=== PATIENT | female | born 1955 | race Caucasian/White ===

== ENCOUNTER 2017-02-07 17:24 | Emergency (ER) | payer BC ==
[~2017-02-07] VITALS: Ht 167.6 cm; Wt 101.2 kg
[~2017-02-07 17:24] MED LIST changes: -IOHEXOL 240 MG/ML 50ML VIAL. ONE; -IOHEXOL 300 MG/ML 75 ML VIAL. IV ONE; -TAMS0.4C97 PO
[2017-02-07 18:38] LABS: BILIRUBIN,URINE NEG (NEG); CLARITY,URINE CLEAR; COLOR,URINE STRAW; GLUCOSE,URINE NEG (NEG)
[2017-02-07 18:39] LABS: AMORPHOUS SEDIMENT,UR PRESENT /HPF; BACTERIA,URINE 0 /HPF (0-FEW); NITRITE,URINE NEG (NEG); RBC,URINE 0 /HPF (0-2); SQUAMOUS EPITHELIAL CELL,UR OCC /LPF; UROBILINOGEN,URINE 0.2 mg/dL (0.2 mg/dL); WBC,URINE OCC /HPF (0-4)
[2017-02-07] MEDS ORDERED: TAMS0.4C97 PO (18:43)
--- NOTE | 2017-02-07 18:44 | PHYS DOC ---
Past History Past Medical History: Diabetes, Hypertension Past Surgical History: Hysterectomy, Tubal ligation, Other Alcohol Use: None Drug Use: None Adult General Chief Complaint Chief Complaint: FLANK PAIN [facility] HPI Patient is a 61 year old F who presents with intermittent sharp left flank pain over the past 3 days. This pain is associated with blood in the urine but no other urinary tract infection signs or symptoms. Her pain is 3 out of 10 currently. She was seen in the clinic and found to have a 5 mm left proximal ureteral stone. She has a history of a previous kidney stone on the right approximately 40 years ago. She has no other exacerbating or alleviating factors. She has no other associated signs or symptoms Review of Systems Review of Systems Constitutional: Denies fever or chills [] Eyes: Denies change in visual acuity, redness, or eye pain [] HENT: Denies nasal congestion or sore throat [] Respiratory: Denies cough or shortness of breath [] Cardiovascular: No additional information not addressed in HPI [] GI: Negative except history of present illness : Denies dysuria or hematuria [] Musculoskeletal: Denies back pain or joint pain [] Integument: Denies rash or skin lesions [] Neurologic: Denies headache, focal weakness or sensory changes [] Endocrine: Denies polyuria or polydipsia [] Family History Family History Noncontributory Current Medications Current Medications Medications reviewed Allergies Allergies Allergies Coded Allergies Type Severity Reaction Last Updated Verified No Known Drug Allergies 05/20/16 No Physical Exam Physical Exam Constitutional: Well developed, well nourished, no acute distress, non-toxic appearance. [] HENT: Normocephalic, atraumatic Eyes: EOMI, conjunctiva normal, no discharge. [] Neck: Normal range of motion, no tenderness, supple, no stridor. [] Cardiovascular:Heart rate regular rhythm, Lungs & Thorax: Bilateral breath sounds clear to auscultation [] Abdomen: Bowel sounds normal, soft, no tenderness, no masses, no pulsatile masses. [] Skin: Warm, dry, no erythema, no rash. [] Back: No tenderness, no CVA tenderness. [] Extremities: No tenderness, no cyanosis, no clubbing, ROM intact, no edema. [] Neurologic: Alert and oriented X 3, normal motor function, normal sensory function, no focal deficits noted. [] Psychologic: Affect normal, judgement normal, mood normal. [] Current Patient Data Vital Signs Vital Signs Date Time Temp Pulse Resp B/P (MAP) Pulse Ox O2 Delivery O2 Flow Rate FiO2 02/07/17 17:25 98.4 89 20 99 Room Air Lab Results Laboratory Tests Test 02/07/17 17:55 Urine Collection Type Unknown Urine Color Straw Urine Clarity Clear Urine pH 5.0 Urine Specific [place] 1.010 Urine Protein Neg (NEG-TRACE) Urine Glucose (UA) Neg mg/dL (NEG) Urine Ketones (Stick) Neg mg/dL (NEG) Urine Blood Trace (NEG) Urine Nitrite Neg (NEG) Urine Bilirubin Neg (NEG) Urine Urobilinogen Dipstick 0.2 mg/dL (0.2 mg/dL) Urine Leukocyte Esterase Neg (NEG) Urine RBC 0 /HPF (0-2) Urine WBC Occ /HPF (0-4) Urine Squamous Epithelial Cells Occ /LPF Urine Amorphous Sediment Present /HPF Urine Bacteria 0 /HPF (0-FEW) Course & Med Decision Making Course & Med Decision Making Pertinent Labs and Imaging studies reviewed. (See chart for details) [facility] urology was contacted by phone for consultation. Outside labs and imaging were reviewed. Her case was reviewed with urology including the finding of a 5 mm proximal left ureteral stone which was described as obstructing and the radiologist's report. Urology's recommendation was to start Flomax and consider follow-up in the next 1-2 weeks. Dragon Disclaimer Dragon Disclaimer This chart was dictated in whole or in part using Voice Recognition software in a busy, high-work load, and often noisy Emergency Department environment. It may contain unintended and wholly unrecognized errors or omissions. Departure Departure: Impression: Primary Impression: Kidney stone Disposition: 01 HOME, SELF-CARE Condition: STABLE Referrals: OPAL SLOAN MD (PCP) Patient Instructions: Kidney Stones Additional Instructions: Debbie was seen in the emergency department for a kidney stone. No emergency medical condition was found on history or physical exam. She had normal urinary analysis. Urology at was contacted by phone for consultation. She was started on Flomax to be taken daily until she passes her kidney stone. She was advised to follow-up with urology in the next 1-2 weeks for further management and/or to return to the emergency room as soon as possible if she develops new or worsening symptoms. Scripts Tamsulosin Hcl (FLOMAX) 0.4 Mg Cap.er.24h 1 CAP PO DAILY for 14 Days, #14 CAP 0 Refills Prov: OPAL RODRÍGUEZ MD 02/07/17 OPAL RODRÍGUEZ MD Feb 07, 2017 18:44
[2017-02-07] MEDS ORDERED: TAMSULOSIN 0.4 MG CAP.ER.24H. PO ONE ×2 (18:47→19:00)
[2017-02-07 19:00] VITALS: BP 195/90
== END 2017-02-07 19:00 | disposition home or self-care (01) ==
LOC: ER 17:24
DX: N20.0 Calculus of kidney (principal); E11.9 Type 2 diabetes mellitus without complications; I10 Essential (primary) hypertension; Z90.710 Acquired absence of both cervix and uterus; Z98.51 Tubal ligation status
CPT/HCPCS: 81001; 99283

== ENCOUNTER → 2017-02-07 | Outpatient (CLI) | payer BC ==
[2016-05-20 10:58] VITALS: BP 219/97
[~2017-02-07] MED LIST: CYCL-331 PO; HYDR-971 PO; IOHEXOL 240 MG/ML 50ML VIAL. ONE; IOHEXOL 300 MG/ML 75 ML VIAL. IV ONE; TAMS0.4C97 PO
--- NOTE | 2017-02-07 13:55 | RAD ---
CT of the abdomen and pelvis with contrast, 02/07/2017: History: Left lower quadrant pain Multidetector CT imaging was performed following oral and IV administration of contrast. The liver is of lower than normal density suggesting fatty change. A 1 cm low-density lesion in the left lobe probably represents a cyst. The gallbladder is unremarkable. There is mild adjacent focal fatty sparing in the liver. No pancreatic abnormality is seen. The spleen is of normal size. Several small intrarenal calculi are present on the left. There is a 5 mm obstructing calculus in the proximal left ureter located just distal to the ureteropelvic junction. There is mild associated dilatation of the left renal collecting system. The distal left ureter is unremarkable. The urinary bladder is poorly distended. The right kidney is mildly atrophic with moderate cortical scarring. No right renal calculi are seen. The right renal collecting system and right ureter are not dilated. The abdominal aorta is unremarkable. No abdominal or pelvic adenopathy is seen. The uterus is surgically absent. The bowel loops are not dilated. The appendix is visualized and shows no abnormality. No free fluid or free air is evident in the abdomen or pelvis. Moderate multilevel hypertrophic degenerative change is present in the spine. IMPRESSION: 1. 5 mm obstructing calculus in the proximal left ureter. 2. Several additional small nonobstructing left intrarenal calculi. 3. Moderate right renal scarring. 4. Hepatic steatosis. 5. Probable small hepatic cyst. PQRS Compliance Statement: One or more of the following individualized dose reduction techniques were utilized for this examination: 1. Automated exposure control 2. Adjustment of the mA and/or kV according to patient size 3. Use of iterative reconstruction technique
== END | disposition home or self-care (01) ==
LOC: CT 11:36
PROVIDERS: ATTEND Physician Assistant
DX: N20.0 Calculus of kidney (principal); K76.0 Fatty (change of) liver, not elsewhere classified; N26.1 Atrophy of kidney (terminal); N32.89 Other specified disorders of bladder; N28.89 Other specified disorders of kidney and ureter; I10 Essential (primary) hypertension; Z90.710 Acquired absence of both cervix and uterus
CPT/HCPCS: 74177; Q9966; Q9967

== ENCOUNTER 2017-02-17 15:26 | Emergency (ER) | payer BC ==
[~2017-02-17] VITALS: Ht 167.6 cm; Wt 101.2 kg
[~2017-02-17 15:26] MED LIST changes: +TAMS0.4C97 PO
[2017-02-17] MEDS ORDERED: IV NORMAL SALINE 1,000ML 1,000 ML IV SCH (16:04)
[2017-02-17 16:24] LABS: BASO # 0.1 x10^3/uL (0.0-0.2); BASO % 1 % (0-3); EOS # 0.1 x10^3/uL (0.0-0.7); EOS % 1 % (0-3); HEMATOCRIT 37.5 % (36.0-47.0); HEMOGLOBIN 12.8 g/dL (12.0-15.5); LYMPH # 1.3 x10^3/uL (1.0-4.8); LYMPH % 11 % (24-48); MEAN CORPUSCULAR HEMOGLOBIN 29 pg (25-35); MEAN CORPUSCULAR HGB CONC 34 g/dL (31-37); MEAN CORPUSCULAR VOLUME 85 fL (79-100); MONO # 0.9 x10^3/uL (0.0-1.1); MONO % 7 % (0-9); NEUT % 81 % (31-73); PLATELET COUNT 173 x10^3/uL (140-400); RED BLOOD COUNT 4.43 x10^6/uL (3.50-5.40); RED CELL DISTRIBUTION WIDTH 12.9 % (11.5-14.5); WHITE BLOOD COUNT 12.4 x10^3/uL (4.0-11.0)
--- NOTE | 2017-02-17 16:24 | PHYS DOC ---
General Chief Complaint: ALTERED MENTAL STATUS Stated Complaint: CONFUSED POSSIBLE MED PROBLEM Time Seen by MD: 15:36 Source: patient, family Exam Limitations: clinical condition Problems: (JAKOB MALDONADO DO) Time Seen by MD: 18:30 Problems: (TANIA MAYNARD MD) History of Present Illness Initial Comments Pt is 61/F to ED brought by daughter for AMS. Daughter states pt was discharged home from last Friday after ureteral stent tx for kidney stone. Left ureteral stent scheduled to be removed this Friday at . She was discharged home with tramadol, norco, and cipro for UTI. Since discharge daughter states all pt has done is lay in bed and take pain meds. She says pt has been acting strangely all week, began hallucinating Friday. Daughter took pain meds away from pt yesterday 1230 pm and since then pt has been more awake and hallucinations more severe (auditory and visual). Pt talking to herself here in the ED on arrival, she cannot answer any questions. Do you have any pain gets responses such as "I don't know what's real, you'll have to ask the other me." Pt VS on arrival 99, 122, 18, 152/63, 95% RA. Daughter states pt has not complained of headache, chest pain, or SOB and no fever/diaphoresis/temperature intolerance has been noted. No cough or obvious lateralizing neurodeficit has been noted. Pt diagnosed DM past August, follows with Dr Sloan, has distant history of breast cancer takes meds for HTN. Timing/Duration: unsure (at least since Friday) Severity: severe Modifying Factors: worse with medication Associated Symptoms: other (JAKOB MALDONADO DO) Allergies: Coded Allergies: No Known Drug Allergies (Unverified , 05/20/16) Past Medical History Medical History: other (HTN, DM, breast cancer, kidney stones, UTI) Surgical History: other (TL, hysterectomy, ureteral stent) (JAKOB MALDONADO DO) Social History Smoker: non-smoker Alcohol: none Drugs: none (JAKOB MALDONADO DO) Review of Systems All Other Systems: Reviewed and Negative (pt unable or refuses to respond, see HPI as accurate ROS unobtainable) (JAKOB MALDONADO DO) Physical Exam General Appearance: mild distress, obese Eyes: bilateral eye normal inspection, bilateral eye PERRL, bilateral eye EOMI Ear, Nose, Throat: hearing grossly normal, normal ENT inspection (dry membranes ), normal pharynx Neck: non-tender, full range of motion, supple Respiratory: normal breath sounds, no respiratory distress Cardiovascular: normal peripheral pulses, tachycardia Gastrointestinal: soft (mildly distended, BS normal, no focal TTP pt daughter states "it's not any bigger than it always is"), no pulsatile mass Back: no CVA tenderness, no vertebral tenderness Extremities: normal range of motion, pelvis stable, other (tenderness distally right calf no obvious swelling or palpable mass) Neurologic/Psychiatric: [employer] II-XII nml as tested, no motor/sensory deficits, alert, other (oriented to self knows she's in hospital, +auditory/visual hallucinations) Skin: warm/dry (poor turgor) (JAKOB MALDONADO DO) Orders, Labs, Meds EKG: sinus tachycardia 122 bpm, baseline wander artifact no STEMI. Interpreted by me. PCXR: no acute cardiopulmonary process, interpreted by me. PATIENT: PRO ALVAREZ ACCOUNT: [id number] : 1955 LOCATION: ER AGE: 61 SEX: F EXAM STATUS: REG ER ORD. PHYSICIAN: JAKOB MALDONADO DO REASON: AMS PROCEDURE: CT HEAD WO CONTRAST CT head Indication: Mental status changes Technique: CT head without IV contrast Comparison: None Findings: No pathologic extra-axial or intra-axial fluid collection. The ventricles and basilar cisterns are within normal limits. No acute intracranial bleed. No midline shift. No focal loss of mayfield-white difference in aeration. Orbits within normal limits. The paranasal sinuses and mastoid air cells are clear. No calvarial lesions. Subcentimeter low-attenuation focus within the right thalamus likely lacunar infarct, age indeterminate. Impression: 1. No acute intracranial bleed. 2. Small focus of low-attenuation within right thalamus likely lacunar infarct, age indeterminate. If concern for acute ischemic stroke is high, please consider MRI. PQRS Compliance Statement: One or more of the following individualized dose reduction techniques were utilized for this examination: 1. Automated exposure control 2. Adjustment of the mA and/or kV according to patient size 3. Use of iterative reconstruction technique DICTATED AND SIGNED BY: SOL WETZEL DATE: 02/17/17 1645 CC: OPAL SLOAN MD; JAKOB MALDONADO DO ~ 1740: Pt rechecked, she can now answer questions and to me hallucinations appear decreased. Pt daughter states she has seen no improvement, pt "I don't know, I can't answer that." Pertinent labs: WBC 12.4, d-dimer >19, BUN 26, Cr 2.2, glucose 2 1825: I discussed pt with Dr Silva at [facility], she declined pt due to indwelling left ureteral stent and lack of urology coverage. Pt signed out to Dr Maynard at 1800 shift change. See his documentation for results/disposition. (JAKOB MALDONADO DO) Orders, Labs, Meds Patient was checked out to me. She has an elevated d-dimer. Have added on alcohol, aspirin, Tylenol levels which are normal. I did also ask ultrasounds of bilateral lower extremities she does have some pain in her right calf and this is positive for DVT. Heparin has been started. I did start the patient on normal saline 120 an hour in addition to 1 g of Rocephin. Spoke with transfer team who accepts the patient. She is in stable condition this time being transferred to underneath . Diagnoses: 1 altered mental status #2 tachycardia #3 elevated d-dimer #4 DVT in the right lower extremity #5 Dm #6 history of kidney stone with a recent ureteral stent #7HTN (TANIA MAYNARD MD) JAKOB MALDONADO DO Feb 17, 2017 16:24 TANIA MAYNARD MD Feb 17, 2017 20:58
--- NOTE | 2017-02-17 16:43 | RAD ---
Portable chest, 02/17/2017: History: Tachycardia The heart size and pulmonary vascularity are normal. No pulmonary infiltrates are seen. There is no evidence of pleural fluid. Moderate spurring is present in the spine. IMPRESSION: No acute cardiopulmonary abnormality is detected.
[2017-02-17 16:44] LABS: ALBUMIN/GLOBULIN RATIO 0.6 (1.0-1.7); CALCIUM 9.1 mg/dL (8.5-10.1); CREATININE 2.2 mg/dL (0.6-1.0); GFR 22.5; MAGNESIUM 1.9 mg/dL (1.8-2.4); POTASSIUM 3.6 mmol/L (3.5-5.1); TOTAL BILIRUBIN 0.6 mg/dL (0.2-1.0); TOTAL PROTEIN 8.2 g/dL (6.4-8.2)
--- NOTE | 2017-02-17 16:51 | RAD ---
CT head Indication: Mental status changes Technique: CT head without IV contrast Comparison: None Findings: No pathologic extra-axial or intra-axial fluid collection. The ventricles and basilar cisterns are within normal limits. No acute intracranial bleed. No midline shift. No focal loss of mayfield-white difference in aeration. Orbits within normal limits. The paranasal sinuses and mastoid air cells are clear. No calvarial lesions. Subcentimeter low-attenuation focus within the right thalamus likely lacunar infarct, age indeterminate. Impression: 1. No acute intracranial bleed. 2. Small focus of low-attenuation within right thalamus likely lacunar infarct, age indeterminate. If concern for acute ischemic stroke is high, please consider MRI. PQRS Compliance Statement: One or more of the following individualized dose reduction techniques were utilized for this examination: 1. Automated exposure control 2. Adjustment of the mA and/or kV according to patient size 3. Use of iterative reconstruction technique
[2017-02-17 16:55] LABS: BARBITURATES NEG (NEG); BENZODIAZEPINES NEG (NEG); CANNABINOIDS NEG (NEG); COCAINE NEG (NEG); METHADONE NEG (NEG); OPIATES POS (NEG); PHENCYCLIDINE NEG (NEG)
[2017-02-17 16:56] LABS: AMPHETAMINE/METHAMPHETAMINE NEG (NEG)
[2017-02-17 17:03] LABS: CLARITY,URINE CLOUDY; COLOR,URINE RED
[2017-02-17 17:05] LABS: BILIRUBIN,URINE NEG (NEG); GLUCOSE,URINE NEG (NEG); NITRITE,URINE NEG (NEG); UROBILINOGEN,URINE 0.2 mg/dL (0.2 mg/dL)
[2017-02-17 17:06] LABS: RBC,URINE TNTC /HPF (0-2)
[2017-02-17 17:07] LABS: BACTERIA,URINE 0 /HPF (0-FEW)
--- NOTE | 2017-02-17 17:51 | EKG ---
[address] [address] Test Date: 2017-02-17 Test Time: 15:48:06 Pat Name: PRO ALVAREZ Department: Room: Gender: F Pot Filler: : 1955 Requested By: JAKOB MALDONADO Order Number: [id number] Reading MD: Measurements Intervals [place] Rate: 120 P: 5 VA: 166 QRS: 3 QRSD: 88 T: 6 QT: 300 QTc: 429 Interpretive Statements SINUS TACHYCARDIA QRS(T) CONTOUR ABNORMALITY CONSISTENT WITH INFERIOR INFARCT PROBABLY OLD ABNORMAL ECG RI6.01 No previous ECG available for comparison
[2017-02-17] MEDS ORDERED: HYOS0.1264 PO (18:00)
[2017-02-17] MEDS ORDERED: TRAM50TA PO (18:01)
[2017-02-17] MEDS ORDERED: METO50TA2 PO (18:01)
[2017-02-17] MEDS ORDERED: CIPR500T PO (18:01)
[2017-02-17 19:15] LABS: ACETAMIN < 2.0 mcg/mL (10-30); ETHANOL < 10 mg/dL (0-10); SALIC 1.1 mg/dL (2.8-20.0)
[2017-02-17] MEDS ORDERED: IV NORMAL SALINE 50ML 50 ML ONE (19:38)
[2017-02-17] MEDS ORDERED: cefTRIAXone SODIUM 1 GM VIAL IV ONE (19:38)
[2017-02-17] MEDS ORDERED: HEPARIN 25,000UTS/500ML PREMIX 500 ML IV PRN (21:00)
[2017-02-17] MEDS ORDERED: HEPARIN for IV BOLUS 10,000 UNIT/10 ML VIAL. IV PRN ×2 (21:00)
--- NOTE | 2017-02-17 21:03 | RAD ---
Exam performed: Bilateral lower extremity venous Doppler. Clinical Indication: Bilateral leg pain Date of Service: 02/17/2017 Comparison : None available Discussion: Multiple longitudinal and transverse high resolution real-time images of the venous system of bilateral lower extremity were obtained with color and Doppler sampling and spectral analysis. There is a nonocclusive clot in the left common, superficial, popliteal, posterior tibial and peroneal vein. The right common femoral, superficial femoral, popliteal and proximal calf veins are all patent and demonstrate normal flow and compressibility. Normal respiratory phasicity and augmentation is present. Impression: Extensive DVT left lower extremity. No evidence of DVT seen in the right lower extremity. Electronically signed by: Xiomara Loaiza MD (02/17/2017 9:00 PM) [facility]
[2017-02-17 21:30] VITALS: BP 150/84
== END 2017-02-17 23:05 | disposition short-term general hospital (02) ==
LOC: ER 15:26
DX: R41.82 Altered mental status, unspecified (principal); R00.0 Tachycardia, unspecified; I82.4Z1 Acute embolism and thrombosis of unspecified deep veins of right distal lower extremity; E11.9 Type 2 diabetes mellitus without complications; I10 Essential (primary) hypertension; Z87.442 Personal history of urinary calculi; Z87.440 Personal history of urinary (tract) infections
CPT/HCPCS: 36415; 70450; 71010; 80053; 80307; 81001; 82140; 82550; 83605; 83690; 83735; 83880; 84484; 85025; 85379; 87040; 87086; 93005; 93970; 96361; 96365; 96366; 96367; 96376; 99285; G0480; J0696; J1644; G0479; J7030

== ENCOUNTER 2017-11-21 01:12 | Emergency (ER) | payer BC ==
[~2017-11-21] VITALS: Ht 167.6 cm; Wt 98.0 kg
[~2017-11-21 01:12] MED LIST changes: +CIPR500T PO; +HYOS0.1264 PO; +METO50TA6 PO; +TRAM50TA PO
--- NOTE | 2017-11-21 01:36 | ED.ADGEN ---
Past History Past Medical History: CAD, Cancer, Diabetes, Hypertension, Kidney Stones Past Surgical History: Cancer Surgery, Hysterectomy, Tubal ligation, Other Alcohol Use: None Drug Use: None Adult General Chief Complaint Chief Complaint ".. I think I am getting another kidney stone...".." It woke me up... I know it what it is.. It is on the Rt.....it was in the past on the ... Lt. I usually go to for urology... and all my care..but I was hurting so .. I stopped here..." HPI HPI Patient is a 62 year old female who presents with acute onset Rt. flank pain that radiate to Rt. groin. Pt. has had a history of multiple kidney stones some requiring stents and retrieval at urology. Patient also under the care of for her breast cancer and is receiving radiation. Patient's primary is also located at . Patient rates her pain 10 out of 10. Patient has associated nausea and vomiting with painful episodes. Patient denies any history of trauma. Patient denies any history of specific ill contacts. Patient denies any recent travel. Review of Systems Review of Systems Constitutional: Denies fever or chills [] Eyes: Denies change in visual acuity, redness, or eye pain [] HENT: Denies nasal congestion or sore throat [] Respiratory: Denies cough or shortness of breath [] Cardiovascular: No additional information not addressed in HPI [] GI: Complaints of right flank abdominal pain, nausea, vomiting. Denies bloody stools or diarrhea [] : Complains of hematuria [] Musculoskeletal: Complaints of severe Rt. flank back pain . Denies joint pain [ ] Integument: Denies rash or skin lesions [] Neurologic: Denies headache, focal weakness or sensory changes [] Endocrine: Denies polyuria or polydipsia [] All other systems were reviewed and found to be within normal limits, except as documented in this note. Family History Family History Non-contributory Current Medications Current Medications Current Medications Medications (Trade) Dose Ordered Sig/Curtis Start Time Stop Time Status Last Admin Dose Admin Famotidine (Pepcid Vial) 20 mg 1X ONCE 11/21/17 02:00 11/21/17 02:01 DC 11/21/17 03:17 20 MG Ketorolac Tromethamine (Toradol) 30 mg 1X ONCE 11/21/17 03:00 11/21/17 03:01 DC 11/21/17 03:16 30 MG Lactated Ringer's 1,000 ml @ 1,000 mls/hr Q1H 11/21/17 02:00 11/21/17 02:59 DC 11/21/17 03:16 1,000 MLS/HR Levofloxacin/ Dextrose 100 ml @ 100 mls/hr 1X ONCE 11/21/17 04:00 11/21/17 04:59 DC 11/21/17 04:23 100 MLS/HR Morphine Sulfate (Morphine 10mg Syringe) 10 mg 1X ONCE 11/21/17 03:00 11/21/17 03:01 DC 11/21/17 03:17 10 MG Ondansetron HCl (Zofran Odt) 8 mg 1X ONCE 11/21/17 03:00 11/21/17 03:01 DC Ondansetron HCl (Zofran) 8 mg 1X ONCE 11/21/17 02:00 11/21/17 02:01 DC 11/21/17 03:16 8 MG Tamsulosin HCl (Flomax) 0.4 mg 1X ONCE 11/21/17 04:30 11/21/17 04:31 DC 11/21/17 04:23 0.4 MG See Nursing for home meds. Allergies Allergies Allergies Coded Allergies Type Severity Reaction Last Updated Verified phenazopyridine Allergy Severe 11/21/17 Yes Physical Exam Physical Exam Constitutional: in acute distress, non-toxic appearance. [] HENT: Normocephalic, atraumatic, bilateral external ears normal, oropharynx moist, no oral exudates, nose normal. [] Eyes: PERRLA, EOMI, conjunctiva normal, no discharge. Glasses. Neck: Normal range of motion, no tenderness, supple, no stridor. [] Cardiovascular: Tachycardia Heart rate regular rhythm, no murmur []PMI to Lt. Lungs & Thorax: Bilateral breath sounds equal at apex on auscultation [] Basilar crackles. Old surgery scar breast rt. Abdomen: Bowel sounds decreased, soft, no tenderness, no masses, no pulsatile masses. Obese. Old surgery scar . Rt. flank pain. Skin: Warm,diaphoretic, no erythema, no rash. [] Back: No mid-line tenderness, Rt. flank CVA tenderness. [] Extremities: No tenderness, no cyanosis, no clubbing, ROM intact, trace edema. [ ] Neurologic: Alert and oriented X 3, normal motor function, normal sensory function, no focal deficits noted. [] Psychologic: Affect anxious, judgement normal, mood depressed. Current Patient Data Vital Signs Vital Signs Date Time Temp Pulse Resp B/P (MAP) Pulse Ox O2 Delivery O2 Flow Rate FiO2 11/21/17 04:27 81 16 122/63 (82) 93 Room Air 11/21/17 01:12 97.7 Lab Results Laboratory Tests Test 11/21/17 03:50 White Blood Count 9.7 x10^3/uL (4.0-11.0) Red Blood Count 4.69 x10^6/uL (3.50-5.40) Hemoglobin 13.4 g/dL (12.0-15.5) Hematocrit 39.5 % (36.0-47.0) Mean Corpuscular Volume 84 fL (79-100) Mean Corpuscular Hemoglobin 29 pg (25-35) Mean Corpuscular Hemoglobin Concent 34 g/dL (31-37) Red Cell Distribution Width 14.3 % (11.5-14.5) Platelet Count 143 x10^3/uL (140-400) Neutrophils (%) (Auto) 85 % (31-73) H Lymphocytes (%) (Auto) 10 % (24-48) L Monocytes (%) (Auto) 5 % (0-9) Eosinophils (%) (Auto) 0 % (0-3) Basophils (%) (Auto) 0 % (0-3) Neutrophils # (Auto) 8.2 x10^3uL (1.8-7.7) H Lymphocytes # (Auto) 1.0 x10^3/uL (1.0-4.8) Monocytes # (Auto) 0.4 x10^3/uL (0.0-1.1) Eosinophils # (Auto) 0.0 x10^3/uL (0.0-0.7) Basophils # (Auto) 0.0 x10^3/uL (0.0-0.2) Prothrombin Time 9.7 SEC (9.4-11.4) Prothrombin Time INR 0.9 (0.9-1.1) PTT 22 SEC (23-33) L Sodium Level 135 mmol/L (136-145) L Potassium Level 4.1 mmol/L (3.5-5.1) Chloride Level 100 mmol/L (98-107) Carbon Dioxide Level 23 mmol/L (21-32) Anion Gap 12 (6-14) Blood Urea Nitrogen 27 mg/dL (7-20) H Creatinine 1.8 mg/dL (0.6-1.0) H Estimated GFR (Cockcroft-Gault) 28.3 Glucose Level 289 mg/dL (70-99) H Calcium Level 9.5 mg/dL (8.5-10.1) Total Bilirubin 0.7 mg/dL (0.2-1.0) Direct Bilirubin 0.2 mg/dL (0.0-0.2) Aspartate Amino Transferase (AST) 23 U/L (15-37) Alanine Aminotransferase (ALT) 28 U/L (14-59) Alkaline Phosphatase 93 U/L (46-116) Total Protein 7.6 g/dL (6.4-8.2) Albumin 3.5 g/dL (3.4-5.0) Lipase 139 U/L (73-393) EKG EKG My interpretation of EKG shows as sinus rate of 88, Lt. axis. No findings of acute STEMI with contra lateral change.s Radiology/Procedures Radiology/Procedures My interpretation of acute abdomen film[] shows prior right chest wall surgical clips. A left mediastinal node. Cardiomegaly. No free air in the diaphragm. Increased stool in colon. What appears to be a right sided kidney stone. Degenerative joint changes. The CT of abdomen shows right-sided hydronephrosis and perinephric edema. With a right proximal ureter stone. Has stones also in the left but they appear to be intrarenal. Also found to have a lesion on the left lobe of liver. A cystic lesion and right kidney. Some nonspecific adenopathy of abdomen. See formal report when available for details. Course & Med Decision Making Course & Med Decision Making Pertinent Labs and Imaging studies reviewed. (See chart for details). Pt. has request transfer to - Still awaiting call back Transfer Center - [phone]- Pt. accepted at [place] [id number], [address] Elise Accepting [] Final Impression Final Impression 1. Right Proximal UVJ renal stone with hydronephrosis and perinephric edema 2. Hx. of Breast Cancer- Rt.- Surgery and Radiation tx. 3. Elevated BU and and creatinine 14/06.8 4. DM- 289 Dragon Disclaimer Dragon Disclaimer This electronic medical record was generated, in whole or in part, using a voice recognition dictation system. RAAD HERNANDEZ MD Nov 21, 2017 01:36
[2017-11-21] MEDS ORDERED: IV RINGERS SOLUTION,LACTATED 1,000 ML IV SCH (02:00)
[2017-11-21] MEDS ORDERED: FAMOTIDINE 20 MG/2 ML VIAL IVP ONE (02:00)
[2017-11-21] MEDS ORDERED: ONDANSETRON PF 4 MG/2 ML VIAL. IV ONE (02:00)
--- NOTE | 2017-11-21 02:09 | EKG ---
[address] [address] Test Date: 2017-11-21 Test Time: 02:03:39 Pat Name: PRO ALVAREZ Department: Room: Gender: F Perinatal Nurse: PEDRO : 1955 Requested By: RAAD HERNANDEZ Order Number: [id number] Reading MD: Mingo Bah MD Measurements Intervals [place] Rate: 88 P: -10 GA: 176 QRS: -4 QRSD: 96 T: 0 QT: 376 QTc: 459 Interpretive Statements SINUS RHYTHM NON-SPECIFIC ST/T CHANGES Electronically Signed On 11-22-2017 9:13:21 CDT by Mingo Bah MD
--- NOTE | 2017-11-21 02:40 | RAD ---
INDICATION: Right flank and right lower quadrant abdominal pain, N/V
Hx Kidney stones in the past with lithotripsy and ureteral stent placement, currently has Breast Cancer and has radiation treatments COMPARISON: February 07, 2017 TECHNIQUE: Axial CT images obtained through the abdomen and pelvis without contrast. Limited assessment of solid organ structures and vasculature secondary to lack of intravenous contrast.. One or more of the following individualized dose reduction techniques were utilized for this examination: 1. Automated exposure control; 2. Adjustment of the mA and/or kV according to patient size; 3. Use of iterative reconstruction technique. FINDINGS: Calcific atherosclerosis without abdominal aortic aneurysm. There are some prominent lymph nodes in the bilateral groin measuring up to about 10 mm short axis. Liver is low-attenuation. Suspected low-density lesion left lobe of liver again seen measuring up to approximately 14 mm. No peripancreatic fluid collection. Suspected bryson of air within common bile duct again seen. Spleen grossly unremarkable. No left-sided hydronephrosis. Urinary bladder is decompressed. Right-sided hydronephrosis with perinephric edema and 8 x 4 mm right UPJ stone. There are additional nonobstructive right renal stones. Prominence the wall of a portion of the transverse colon but this is in a region of lack of distention. No periappendiceal inflammation. Degenerative changes throughout the spine with multilevel central canal and neural foraminal stenosis. Scattered prominent lymph nodes within the abdomen and pelvis. Suspected low-density lesion of the lower pole of the right kidney but not well evaluated on this noncontrast exam IMPRESSION: 1. Right-sided hydronephrosis and perinephric edema with right proximal ureter stone. There are multiple additional nonobstructive right greater than left renal stones. 2. Low-density lesion in the left lobe of the liver is again seen and not well characterized on this exam. Could be cystic in nature but incomplete evaluation on this exam. Given the patient's history a follow-up CT, MRI or focused ultrasound could BE obtained on a nonemergent basis to ensure there is no complex component. 3. Possible cystic lesion of the right kidney although poorly evaluated on this noncontrast exam. 4. Mild rotation of the mesentery but no evidence of obstruction 5. Urinary bladder is decompressed with mild indistinctness of adjacent fat. Cannot exclude bladder inflammation given this finding from causes such as cystitis. 6. Liver is low-attenuation. Nonspecific but can be seen with fatty infiltration Electronically signed by: Raffy Cuadra MD (11/21/2017 2:37 AM) [id number]
[2017-11-21] MEDS ORDERED: ONDANSETRON ODT 4 MG TAB.RAPDIS PO ONE (03:00)
[2017-11-21] MEDS ORDERED: KETOROLAC 30 MG/ML VIAL. IV ONE (03:00)
[2017-11-21] MEDS ORDERED: MORPHINE SULFATE 10 MG/ML SYRINGE. SQ ONE (03:00)
[2017-11-21 04:20] LABS: ALBUMIN 3.5 g/dL (3.4-5.0); CALCIUM 9.5 mg/dL (8.5-10.1); CREATININE 1.8 mg/dL (0.6-1.0); DIRECT BILIRUBIN 0.2 mg/dL (0.0-0.2); GFR 28.3; POTASSIUM 4.1 mmol/L (3.5-5.1); TOTAL BILIRUBIN 0.7 mg/dL (0.2-1.0); TOTAL PROTEIN 7.6 g/dL (6.4-8.2)
[2017-11-21 04:27] VITALS: BP 122/63
[2017-11-21] MEDS ORDERED: TAMSULOSIN 0.4 MG CAP.ER.24H. PO ONE (04:30)
[2017-11-21 04:42] LABS: BASO % 0 % (0-3); EOS % 0 % (0-3); HEMATOCRIT 39.5 % (36.0-47.0); HEMOGLOBIN 13.4 g/dL (12.0-15.5); LYMPH % 10 % (24-48); MEAN CORPUSCULAR HEMOGLOBIN 29 pg (25-35); MEAN CORPUSCULAR HGB CONC 34 g/dL (31-37); MEAN CORPUSCULAR VOLUME 84 fL (79-100); MONO # 0.4 x10^3/uL (0.0-1.1); MONO % 5 % (0-9); NEUT # 8.2 x10^3uL (1.8-7.7); NEUT % 85 % (31-73); PLATELET COUNT 143 x10^3/uL (140-400); RED BLOOD COUNT 4.69 x10^6/uL (3.50-5.40); RED CELL DISTRIBUTION WIDTH 14.3 % (11.5-14.5); WHITE BLOOD COUNT 9.7 x10^3/uL (4.0-11.0)
[2017-11-21] MEDS ORDERED: PANT40TA5 PO (05:18)
[2017-11-21] MEDS ORDERED: HYDR25TA9 PO (05:18)
[2017-11-21] MEDS ORDERED: AMLO10TA2 PO (05:18)
[2017-11-21] MEDS ORDERED: INSU100I17 SQ (05:18)
[2017-11-21] MEDS ORDERED: MELA3TAB2 PO (05:18)
[2017-11-21] MEDS ORDERED: FERR324T9 PO (05:18)
[2017-11-21] MEDS ORDERED: MECL25TA3 PO (05:18)
[2017-11-21] MEDS ORDERED: TRAM50TA PO (05:18)
[2017-11-21] MEDS ORDERED: APIX5TAB3 PO (05:18)
[2017-11-21] MEDS ORDERED: GLIM2TAB2 PO (05:18)
[2017-11-21] MEDS ORDERED: LISI10TA2 PO (05:18)
[2017-11-21] MEDS ORDERED: ONDA4TAB11 PO (05:18)
[2017-11-21] MEDS ORDERED: INSU100I13 SQ (05:18)
[2017-11-21] MEDS ORDERED: CYAN10005 PO (05:18)
[2017-11-21] MEDS ORDERED: METF10003 PO (05:18)
--- NOTE | 2017-11-21 08:09 | RAD ---
Acute abdominal series with single view chest 11/21/2017 1:54 AM INDICATION: Right flank and right lower quadrant abdominal pain COMPARISON: CT abdomen/pelvis November 21, 2017 TECHNIQUE: Single view of the chest, upright view of abdomen and supine view of abdomen are provided. FINDINGS: The cardiomediastinal silhouette is within normal limits. There are no pleural effusions. There is no pulmonary vascular congestion. There is no pneumothorax. The lungs are clear. No dilated loops of small large bowel are identified. No differential air-fluid levels. No free intraperitoneal air. 8 mm calculus projects over the expected region of the proximal right ureter. Degenerative changes of the lumbar spine are present. No suspicious osseous abnormality is identified. IMPRESSION: No acute cardiopulmonary process. 8 mm calculus projects over the expected region of the proximal right ureter. Nonobstructive bowel gas pattern. Electronically signed by: Luanne Saldana MD (11/21/2017 8:06 AM) [facility]
== END 2017-11-21 07:27 | disposition short-term general hospital (02) ==
LOC: ER 01:12
DX: N13.2 Hydronephrosis with renal and ureteral calculous obstruction (principal); R60.9 Edema, unspecified; R79.89 Other specified abnormal findings of blood chemistry; I25.10 Atherosclerotic heart disease of native coronary artery without angina pectoris; E11.9 Type 2 diabetes mellitus without complications; I10 Essential (primary) hypertension; Z87.442 Personal history of urinary calculi; Z90.710 Acquired absence of both cervix and uterus; Z98.51 Tubal ligation status; Z88.8 Allergy status to other drugs, medicaments and biological substances
CPT/HCPCS: 36415; 74022; 74176; 80048; 80076; 83690; 85025; 85610; 85730; 93005; 96361; 96365; 96372; 96375; 99285; J1885; J1956; J2270; J2405; J7120; S0028

== ENCOUNTER 2018-01-19 10:43 | Emergency (ER) | payer BC ==
[~2018-01-19] VITALS: Ht 167.6 cm; Wt 98.0 kg
[~2018-01-19 10:43] MED LIST changes: +AMLO10TA6 PO; +APIX5TAB3 PO; +CYAN10005 PO; +FERR324T9 PO; +GLIM2TAB2 PO; +HYDR25TA9 PO; +INSU100I13 SQ; +INSU100I17 SQ; +LISI10TA2 PO; +MECL25TA3 PO; +MELA3TAB2 PO; +METF10007 PO; +ONDA4TAB11 PO; +PANT40TA5 PO
--- NOTE | 2018-01-19 11:40 | PHYS DOC ---
Past History Past Medical History: CAD, Cancer (breasts), Diabetes, Hypertension, Kidney Stones Past Surgical History: Cancer Surgery, Hysterectomy, Tubal ligation, Other Alcohol Use: None Drug Use: None Adult General Chief Complaint Chief Complaint: ABDOMINAL PAIN HPI HPI Patient is a 62-year-old female who presents to the emergency department for evaluation. She states that this morning at about 4 PM she had a relatively sudden onset of right lower abdominal discomfort, which feels similar to her prior kidney stones. She hasn't had any dysuria, hematuria, nausea, vomiting, fevers, or chills. She states that she had kidney stones in November, and was seen at , where she had stenting and stone removal, extensive since been removed. 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 She denies any chest pain shortness of breath, dizziness, lightheadedness. She has pain across the entire side of her right abdomen, worse in the lower abdomen. There are no alleviating factors to her symptoms. Review of Systems Review of Systems Constitutional: Denies fever or chills [] Eyes: Denies change in visual acuity, redness, or eye pain [] HENT: Denies nasal congestion or sore throat [] Respiratory: Denies cough or shortness of breath [] Cardiovascular: The patient denies any shortness of breath, chest pain, palpitations, or orthopnea [] GI: Denies nausea, vomiting, bloody stools or diarrhea [] : Denies dysuria or gross hematuria [] Musculoskeletal: Denies back pain or joint pain [] Integument: Denies rash or skin lesions [] Neurologic: Denies headache, focal weakness or sensory changes [] Endocrine: Denies polyuria or polydipsia [] All other systems were reviewed and found to be within normal limits, except as documented in this note. Allergies Allergies Allergies Coded Allergies Type Severity Reaction Last Updated Verified phenazopyridine Allergy Severe 11/21/17 Yes Physical Exam Physical Exam PHYSICAL EXAM: CONSTITUTIONAL: Well developed, well nourished HEAD: normocephalic, atraumatic EENT: PERRL, EOMI. Conjunctivae normal color, sclerae non-icteric; moist mucous membranes. NECK: Supple, non-tender; no meningismus. LUNGS: Lungs CTA, breathing even and unlabored. Normal air movement. HEART: Regular rate and rhythm, no murmur CHEST: No deformity; non-tender ABDOMEN: The abdomen is soft, there is diffuse tenderness to palpation to the entire right abdomen, both right upper and lower abdomen, with voluntary guarding which does somewhat limit the exam. There is no rebound tenderness. Normal bowel sounds are present. The right lower abdomen is more tender than the upper abdomen. The remainder the abdomen is nontender. No masses or bruits. EXTREM: Normal ROM; no deformity, no calf tenderness. Normal pulses palpable in all extremities. There is no pedal edema. SKIN: No rash; no diaphoresis NEURO: Alert; normal speech and cognition; CN's grossly intact; strength grossly intact without focal deficit. BACK: No CVA TTP. Current Patient Data Lab Results Laboratory Tests Test 01/19/18 11:02 01/19/18 12:10 01/19/18 14:55 Urine Collection Type Unknown U cath Urine Color Yellow Yellow Urine Clarity Hazy Cloudy Urine pH 5.0 5.5 Urine Specific [place] 1.015 1.020 Urine Protein >100 mg/dl 100 mg/dl Urine Glucose (UA) >=1000 mg/dL 500 mg/dL Urine Ketones (Stick) Neg mg/dL Neg mg/dL Urine Blood Mod Mod Urine Nitrite Neg Pos Urine Bilirubin Neg Neg Urine Urobilinogen Dipstick 0.2 mg/dL 0.2 mg/dL Urine Leukocyte Esterase Neg Trace Urine RBC 3-5 /HPF 3-5 /HPF Urine WBC >40 /HPF >40 /HPF Urine Squamous Epithelial Cells Few /LPF Few /LPF Urine Bacteria Mod /HPF Mod /HPF Urine Mucus Slight /LPF Slight /LPF Urine Yeast Present /HPF Present /HPF White Blood Count 9.2 x10^3/uL Red Blood Count 4.92 x10^6/uL Hemoglobin 13.9 g/dL Bedside Hemoglobin 12.9 gm/dL Hematocrit 40.9 % Bedside Hematocrit 38 % Mean Corpuscular Volume 83 fL Mean Corpuscular Hemoglobin 28 pg Mean Corpuscular Hemoglobin Concent 34 g/dL Red Cell Distribution Width 13.9 % Platelet Count x10^3/uL Neutrophils (%) (Auto) 80 % Lymphocytes (%) (Auto) 13 % Monocytes (%) (Auto) 6 % Eosinophils (%) (Auto) 1 % Basophils (%) (Auto) 1 % Neutrophils # (Auto) 7.4 x10^3uL Lymphocytes # (Auto) 1.2 x10^3/uL Monocytes # (Auto) 0.6 x10^3/uL Eosinophils # (Auto) 0.0 x10^3/uL Basophils # (Auto) 0.1 x10^3/uL Platelet Estimate Decreased Platelet Clumps, EDTA Present Large Platelets Present Polychromasia Present Bedside Sodium 138 mmol/L Bedside Potassium 4.6 mmol/L Bedside Chloride 103 mmol/L Bedside Total CO2 24 mmol/L Anion Gap 16 mmol/L Bedside Blood Urea Nitrogen 26 mg/dL Bedside Creatinine 1.2 mg/dL Glucose Level 364 mg/dL Bedside Ionized Calcium (Bertha) 1.18 mmol/L Total Bilirubin 0.9 mg/dL Direct Bilirubin < 0.1 mg/dL Aspartate Amino Transf (AST/SGOT) 47 U/L Alanine Aminotransferase (ALT/SGPT) 24 U/L Alkaline Phosphatase 103 U/L Total Protein 8.0 g/dL Albumin 4.3 g/dL Lipase 111 U/L Current Medications Medications (Trade) Dose Ordered Sig/Curtis Route PRN Reason Start Time Stop Time Status Last Admin Dose Admin Sodium Chloride 1,000 ml @ 1,000 mls/hr Q1H IV 01/19/18 11:45 01/19/18 12:44 DC Ketorolac Tromethamine (Toradol 30mg Vial) 30 mg 1X ONCE IV 01/19/18 11:45 01/19/18 12:30 DC Oxycodone/ Acetaminophen (Percocet 5/325) 1 tab 1X ONCE PO 01/19/18 12:30 01/19/18 12:36 DC 01/19/18 12:41 Insulin Human Regular (HumuLIN R VIAL) 5 unit 1X ONCE SQ 01/19/18 13:15 01/19/18 13:30 DC 01/19/18 14:09 Ceftriaxone Sodium (Rocephin Im) 1 gm 1X ONCE IM 01/19/18 13:30 01/19/18 13:31 DC 01/19/18 14:07 Lidocaine HCl 20 ml STK-MED ONCE .ROUTE 01/19/18 13:59 01/19/18 14:00 DC EKG EKG [] Radiology/Procedures Radiology/Procedures [PROCEDURE: CT ABDOMEN PELVIS WO CONTRAST CT study of the abdomen and pelvis without contrast Clinical indications: Right flank pain for one day. TECHNIQUE: Noncontrast helical CT scanning of the abdomen and pelvis was performed. Without contrast, the sensitivity to detect organ pathology and GI tract pathology is decreased. PQRS compliance Statement One or more of the following individualized dose reduction techniques were utilized for this study: 1. Automated exposure control 2. Adjustment of the mA and/or kV according to patient size 3. Use of iterative reconstruction technique COMPARISON: November 21, 2017. FINDINGS: Diffuse fatty infiltration of the liver is evident. There is a small cyst of the left lobe of the liver which is unchanged. The spleen is not abnormally enlarged. The pancreas and gallbladder are normal. No extra hepatic biliary ductal dilatation is seen. No adrenal mass is evident. No hydronephrosis or hydroureter is evident on the left side. On the right side, moderate hydronephrosis and mild hydroureter is seen down to the UVJ. No stone is evident. Periureteral edema and perinephric edema is seen. Stones are evident within the mid aspect and lower pole of the right kidney. The urinary bladder is not abnormally distended. The appendix is normal. No obstructive bowel pattern is evident. No free air or free fluid or mesenteric edema is seen. No osteolytic process is seen. No lung base consolidation is evident. IMPRESSION: Moderate right-sided hydronephrosis and mild hydroureter down to the level of the UVJ. No ureteral stone is evident. Therefore, the obstruction could be due to distal ureteral edema from recent passage of a stone or be secondary to blood or pus within the upper right urinary tract. There is periureteral edema and perinephric edema on the right side which may be due to obstruction but may be seen with pyelonephritis and ureteritis. Stones of the right kidney are seen. Diffuse fatty infiltration of the liver. ] Course & Med Decision Making Course & Med Decision Making Pertinent Labs and Imaging studies reviewed. (See chart for details) [2:25 PM: I spoke with Dr. Lopez, urology [facility], where the patient has been cared for in the past. He felt that if the patient truly has pyuria with obstruction, she needs to be stented and would warrant transfer. However, before this is done , he requested that I obtain a catheterized specimen to ensure that we are collecting a true uncontaminated urine specimen. The patient does not have a true urinary tract infection, she can follow-up as an outpatient. If she does have pyuria, she will be transferred. Urine will be re-collected. 3:50 PM: Patient's repeat urinalysis does show continued evidence of infection. She'll be transferred to , Dr. Lopez has accepted the patient. He was updated on the patient's status. The patient needs to be stented. Dragon Disclaimer Dragon Disclaimer This electronic medical record was generated, in whole or in part, using a voice recognition dictation system. Departure Departure: Impression: Primary Impression: Urinary tract infection Additional Impression: Ureteral obstruction Disposition: XFER SHT-TRM HOSP Condition: STABLE Referrals: NON,STAFF (PCP) Problem Qualifiers MART DEAL MD Jan 19, 2018 11:40
[2018-01-19] MEDS ORDERED: IV NORMAL SALINE 1,000ML 1,000 ML IV SCH (11:45)
[2018-01-19] MEDS ORDERED: KETOROLAC 30 MG/ML VIAL. IV ONE (11:45)
[2018-01-19 11:51] LABS: BACTERIA,URINE MOD /HPF (0-FEW); BILIRUBIN,URINE NEG (NEG); CLARITY,URINE HAZY; COLOR,URINE YELLOW; GLUCOSE,URINE >=1000 mg/dL (NEG); NITRITE,URINE NEG (NEG); SQUAMOUS EPITHELIAL CELL,UR FEW /LPF; UROBILINOGEN,URINE 0.2 mg/dL (0.2 mg/dL); WBC,URINE >40 /HPF (0-4)
[2018-01-19 11:52] LABS: YEAST,URINE PRESENT /HPF
[2018-01-19] MEDS ORDERED: oxyCODONE/APAP 5/325 1 TAB TABLET PO ONE (12:30)
[2018-01-19 12:36] LABS: BASO # 0.1 x10^3/uL (0.0-0.2); BASO % 1 % (0-3); EOS % 1 % (0-3); HEMATOCRIT 40.9 % (36.0-47.0); HEMOGLOBIN 13.9 g/dL (12.0-15.5); LYMPH # 1.2 x10^3/uL (1.0-4.8); LYMPH % 13 % (24-48); MEAN CORPUSCULAR HEMOGLOBIN 28 pg (25-35); MEAN CORPUSCULAR HGB CONC 34 g/dL (31-37); MEAN CORPUSCULAR VOLUME 83 fL (79-100); MONO # 0.6 x10^3/uL (0.0-1.1); MONO % 6 % (0-9); NEUT # 7.4 x10^3uL (1.8-7.7); NEUT % 80 % (31-73); RED BLOOD COUNT 4.92 x10^6/uL (3.50-5.40); RED CELL DISTRIBUTION WIDTH 13.9 % (11.5-14.5); WHITE BLOOD COUNT 9.2 x10^3/uL (4.0-11.0)
[2018-01-19 12:46] LABS: HEMOGLOBIN ISTAT 12.9 gm/dL; POTASSIUM ISTAT 4.6 mmol/L (3.5-5.0)
[2018-01-19] MEDS ORDERED: INSULIN REGULAR 100 UNIT/ML 3ML VIAL. SQ ONE (13:15)
--- NOTE | 2018-01-19 13:27 | RAD ---
CT study of the abdomen and pelvis without contrast Clinical indications: Right flank pain for one day. TECHNIQUE: Noncontrast helical CT scanning of the abdomen and pelvis was performed. Without contrast, the sensitivity to detect organ pathology and GI tract pathology is decreased. PQRS compliance Statement One or more of the following individualized dose reduction techniques were utilized for this study: 1. Automated exposure control 2. Adjustment of the mA and/or kV according to patient size 3. Use of iterative reconstruction technique COMPARISON: November 21, 2017. FINDINGS: Diffuse fatty infiltration of the liver is evident. There is a small cyst of the left lobe of the liver which is unchanged. The spleen is not abnormally enlarged. The pancreas and gallbladder are normal. No extra hepatic biliary ductal dilatation is seen. No adrenal mass is evident. No hydronephrosis or hydroureter is evident on the left side. On the right side, moderate hydronephrosis and mild hydroureter is seen down to the UVJ. No stone is evident. Periureteral edema and perinephric edema is seen. Stones are evident within the mid aspect and lower pole of the right kidney. The urinary bladder is not abnormally distended. The appendix is normal. No obstructive bowel pattern is evident. No free air or free fluid or mesenteric edema is seen. No osteolytic process is seen. No lung base consolidation is evident. IMPRESSION: Moderate right-sided hydronephrosis and mild hydroureter down to the level of the UVJ. No ureteral stone is evident. Therefore, the obstruction could be due to distal ureteral edema from recent passage of a stone or be secondary to blood or pus within the upper right urinary tract. There is periureteral edema and perinephric edema on the right side which may be due to obstruction but may be seen with pyelonephritis and ureteritis. Stones of the right kidney are seen. Diffuse fatty infiltration of the liver. Electronically signed by: Jaxson Carroll MD (01/19/2018 1:25 PM) [facility]
[2018-01-19] MEDS ORDERED: cefTRIAXone IM 1 GM VIAL IM ONE (13:30)
[2018-01-19 13:32] LABS: PLT ESTIMATE DECREASED (ADEQUATE)
[2018-01-19 13:33] LABS: PLATELET CLUMP PRESENT
[2018-01-19 13:34] LABS: POLYCHROMASIA PRESENT
[2018-01-19 13:40] LABS: ALBUMIN 4.3 g/dL (3.4-5.0)
[2018-01-19 13:41] LABS: ALK PHOS 103 U/L (46-116); ALT (SGPT) 24 U/L (14-59); AST (SGOT) 47 U/L (15-37); LIPASE 111 U/L (73-393); TOTAL BILIRUBIN 0.9 mg/dL (0.2-1.0)
[2018-01-19 13:43] LABS: DIRECT BILIRUBIN < 0.1 mg/dL (0.0-0.2)
[2018-01-19] MEDS ORDERED: LIDOCAINE 1% Multi-Dose 20 ML VIAL. ONE (13:59)
[2018-01-19 14:10] VITALS: BP 152/66
[2018-01-19 15:33] LABS: COLOR,URINE YELLOW
[2018-01-19 15:34] LABS: BILIRUBIN,URINE NEG (NEG); CLARITY,URINE CLOUDY; GLUCOSE,URINE 500 mg/dL (NEG); NITRITE,URINE POS (NEG); UROBILINOGEN,URINE 0.2 mg/dL (0.2 mg/dL); WBC,URINE >40 /HPF (0-4)
[2018-01-19 15:35] LABS: BACTERIA,URINE MOD /HPF (0-FEW); SQUAMOUS EPITHELIAL CELL,UR FEW /LPF; YEAST,URINE PRESENT /HPF
== END 2018-01-19 16:50 | disposition short-term general hospital (02) ==
LOC: ER 10:43
DX: N39.0 Urinary tract infection, site not specified (principal); N13.1 Hydronephrosis with ureteral stricture, not elsewhere classified; I25.10 Atherosclerotic heart disease of native coronary artery without angina pectoris; E11.9 Type 2 diabetes mellitus without complications; I10 Essential (primary) hypertension; Z87.442 Personal history of urinary calculi; Z90.710 Acquired absence of both cervix and uterus; Z98.51 Tubal ligation status; Z88.8 Allergy status to other drugs, medicaments and biological substances
CPT/HCPCS: 36415; 51701; 74176; 80047; 80076; 81001; 82947; 83690; 85025; 87086; 87186; 96372; 99285; J0696; J1815; J7030

== ENCOUNTER 2018-03-21 11:11 | Emergency (ER) | payer BC ==
[~2018-03-21] VITALS: Ht 167.6 cm; Wt 92.0 kg
[2018-03-21 11:18] VITALS: BP 184/81
[2018-03-21 11:54] LABS: BILIRUBIN,URINE NEG (NEG); CLARITY,URINE TURBID; COLOR,URINE YELLOW; GLUCOSE,URINE >=1000 mg/dL (NEG)
[2018-03-21 11:55] LABS: NITRITE,URINE NEG (NEG); UROBILINOGEN,URINE 0.2 mg/dL (0.2 mg/dL)
[2018-03-21 11:57] LABS: BACTERIA,URINE MOD /HPF (0-FEW); SQUAMOUS EPITHELIAL CELL,UR FEW /LPF; WBC,URINE >40 /HPF (0-4)
[2018-03-21 11:58] LABS: YEAST,URINE PRESENT /HPF
[2018-03-21] MEDS ORDERED: CEFD300C PO (12:14)
--- NOTE | 2018-03-21 12:18 | ED.ADGEN ---
Past History Past Medical History: CAD, Cancer, Diabetes, Hypertension, Kidney Stones Past Surgical History: Cancer Surgery, Hysterectomy, Tubal ligation, Other Alcohol Use: None Drug Use: None Adult General Chief Complaint Chief Complaint Urinary frequency, urgency HPI HPI Patient is a 42-year-old female with history of recurrent urinary tract infections who presents with urinary frequency urgency and dysuria for the past 4 days. No fever chills, nausea vomiting or sweats. No flank pain, hematuria, decreased urinary output. No history of kidney stones reports chronic cough for 1 month. No shortness. No other acute symptoms or complaints.[] Review of Systems Review of Systems Review symptoms as per history of present illness. All other review symptoms are negative. All other systems were reviewed and found to be within normal limits, except as documented in this note. Allergies Allergies Allergies Coded Allergies Type Severity Reaction Last Updated Verified phenazopyridine Allergy Severe 11/21/17 Yes Physical Exam Physical Exam Constitutional: Well developed, well nourished, no acute distress, non-toxic appearance. [] HENT: Normocephalic, atraumatic, bilateral external ears normal, oropharynx moist, no oral exudates, nose normal. [] Eyes: PERRLA, EOMI, conjunctiva normal, no discharge. [] Neck: Normal range of motion, no tenderness, supple, no stridor. [] Cardiovascular:Heart rate regular rhythm, no murmur. [] Lungs & Thorax: Bilateral breath sounds clear to auscultation [] Abdomen: Bowel sounds normal, soft, no tenderness [] Skin: Warm, dry, no erythema, no rash. [] Back: No tenderness, no CVA tenderness. [] Extremities: No tenderness, no edema. [] Neurologic: Alert and oriented X 3, normal motor function, normal sensory function, no focal deficits noted. [] Psychologic: Affect normal, judgement normal, mood normal. [] Current Patient Data Vital Signs Vital Signs Date Time Temp Pulse Resp B/P (MAP) Pulse Ox O2 Delivery O2 Flow Rate FiO2 03/21/18 11:18 97.6 102 20 99 Room Air Lab Results Laboratory Tests Test 03/21/18 11:20 Urine Collection Type U cath Urine Color Yellow Urine Clarity Turbid Urine pH 5.5 Urine Specific [place] 1.020 Urine Protein 100 mg/dl (NEG-TRACE) Urine Glucose (UA) >=1000 mg/dL (NEG) Urine Ketones (Stick) Neg mg/dL (NEG) Urine Blood Large (NEG) Urine Nitrite Neg (NEG) Urine Bilirubin Neg (NEG) Urine Urobilinogen Dipstick 0.2 mg/dL (0.2 mg/dL) Urine Leukocyte Esterase Large (NEG) Urine RBC 11-20 /HPF (0-2) Urine WBC >40 /HPF (0-4) Urine Squamous Epithelial Cells Few /LPF Urine Transitional Epithelial Cells Occ /LPF Urine Bacteria Mod /HPF (0-FEW) Urine Yeast Present /HPF EKG EKG [] Radiology/Procedures Radiology/Procedures [] Course & Med Decision Making Course & Med Decision Making Pertinent Labs and Imaging studies reviewed. (See chart for details) [Antibiotics prescribed. Recommend following up with PCP to confirm urine culture results and for evaluation of chronic cough] Final Impression Final Impression [#1 urinary tract infection] Dragon Disclaimer Dragon Disclaimer This electronic medical record was generated, in whole or in part, using a voice recognition dictation system. SANDRA GARCIA DO Mar 21, 2018 12:18
== END 2018-03-21 12:31 | disposition home or self-care (01) ==
LOC: ER 11:11
DX: N39.0 Urinary tract infection, site not specified (principal); I25.10 Atherosclerotic heart disease of native coronary artery without angina pectoris; E11.9 Type 2 diabetes mellitus without complications; I10 Essential (primary) hypertension; Z87.442 Personal history of urinary calculi; Z98.51 Tubal ligation status; Z90.710 Acquired absence of both cervix and uterus; Z88.8 Allergy status to other drugs, medicaments and biological substances
CPT/HCPCS: 81001; 87086; 99284

== ENCOUNTER 2020-09-06 10:31 | Emergency (ER) | payer BC, MEDICARE ==
[~2020-09-06] VITALS: Ht 167.6 cm; Wt 82.7 kg
[~2020-09-06 10:31] MED LIST changes: +AMLO-187 PO; -AMLO10TA6 PO; +CEFD300C PO; -CIPR500T PO; +CIPR500T2 PO; +CYAN-25 PO; -CYAN10005 PO; -GLIM2TAB2 PO; +GLIM2TAB7 PO; +HYDR-2145 PO; +HYDR-3165 PO; -HYDR-971 PO; -HYDR25TA9 PO; +LISI10TA16 PO; -LISI10TA2 PO; +MECL-75 PO; -MECL25TA3 PO; -MELA3TAB2 PO; +MELA3TAB4 PO; +ONDA-84 PO; -ONDA4TAB11 PO; -PANT40TA5 PO; +PANT40TA6 PO
[2020-09-06] MEDS ORDERED: METOPROLOL TARTRATE 5 MG/5 ML VIAL. IV ONE (11:00)
--- NOTE | 2020-09-06 11:02 | PHYS DOC ---
Past History Past Medical History: CAD, Cancer, Diabetes, Hypertension, Kidney Stones, Other Additional Past Medical Histor: breast ca Past Surgical History: Cancer Surgery, Cholecystectomy, Hysterectomy, Oophorectomy, Tubal ligation, Other Additional Past Surgical Histo: ureteral stent placed 2018 Alcohol Use: None Drug Use: None General Adult EDM: Chief Complaint: MECHANICAL FALL HPI: HPI: 65-year-old female presents via EMS with syncopal episode and fall at home. Patient got up this morning and went to take out the trash. She remembers walking back into the house past the door and that all she remembers. She then woke up sometime later on the floor and had to get herself up. An ambulance was called. She was home alone. No one witnessed the event. Patient has an abrasion on the left side of her forehead. She has not taken any of her medications today. She states that she has diabetes taking insulin and has high blood pressure for which she takes 2 white pills. She has not had a blood pressure medicine for 2 days but does not give a reason why. Patient denies fever or chills. She was feeling normal prior to this episode. She had some mild dizziness as she walked back from taking the trash out, but was unaware that she was about to pass out. Review of Systems: Review of Systems: Constitutional: Denies fever or chills Eyes: Denies change in visual acuity HENT: Denies nasal congestion or sore throat Respiratory: Denies cough or shortness of breath Cardiovascular: Denies chest pain or edema GI: Denies abdominal pain, nausea, vomiting, bloody stools or diarrhea : Denies dysuria Musculoskeletal: Denies back pain or joint pain Integument: Denies rash Neurologic: Syncope. Denies headache, focal weakness or sensory changes Endocrine: Elevated blood sugar Lymphatic: Denies swollen glands Psychiatric: Denies depression or anxiety Allergies: Allergies: Allergies Coded Allergies Type Severity Reaction Last Updated Verified phenazopyridine Allergy Severe 09/06/20 Yes Physical Exam: PE: Constitutional: Well developed, well nourished, no acute distress, non-toxic appearance. [] HENT: Normocephalic, abrasion of the forehead, bilateral external ears normal, oropharynx moist, no oral exudates, nose normal. [] Eyes: PERRLA, EOMI, conjunctiva normal, no discharge. [] Neck: Normal range of motion, no tenderness, supple, no stridor. [] Cardiovascular: Heart rate 102, regular rhythm, no murmur. Elevated blood pressure [] Lungs & Thorax: Bilateral breath sounds clear to auscultation [] Abdomen: Bowel sounds normal, soft, no tenderness, no masses, no pulsatile masses. [] Skin: Warm, dry, no erythema, no rash. [] Back: No tenderness, no CVA tenderness. [] Extremities: No tenderness, no cyanosis, no clubbing, ROM intact, no edema. [] Neurologic: Alert and oriented X 3, normal motor function, normal sensory function, no focal deficits noted. [] Psychologic: Affect normal, judgement normal, mood normal. [] Current Patient Data: Vital Signs: Vital Signs Date Time Temp Pulse Resp B/P (MAP) Pulse Ox O2 Delivery O2 Flow Rate FiO2 09/06/20 10:37 97.5 107 20 210/105 (140) 99 Room Air EKG: EKG: Sinus rhythm, rate 100, normal axis, no ST elevation or depression. [] Radiology/Procedures: Radiology/Procedures: [] Impressions: EXAM: Head CT without contrast. HISTORY: Syncope. Fall. TECHNIQUE: Computed tomographic images of the head were obtained without contrast. *One or more of the following individualized dose reduction techniques were utilized for this examination: 1. Automated exposure control. 2. Adjustment of the mA and/or kV according to patient size. 3. Use of iterative reconstruction technique. COMPARISON: 02/17/2017. FINDINGS: There is no acute or subacute extra-axial or intraparenchymal hemorrhage. There is no mass effect or midline shift. There is no hydrocephalus. There are areas of decreased attenuation within the cerebral white matter, nonspecific and likely related to chronic small vessel disease. There is cerebral volume loss. There are small chronic infarcts within the left centrum s emiovale and right thalamus. There is a small left inferior frontal scalp and supraorbital soft tissue hematoma. The visualized portions of the orbits, paranasal sinuses and mastoid air cells are unremarkable. No suspicious calvarial lesion is seen. IMPRESSION: 1. Small inferior left frontal scalp and left supraorbital soft tissue hematoma. 2. Bilateral cerebral white matter changes, likely due to chronic small vessel disease. 3. 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 4. Cerebral volume loss. Electronically signed by: Mary Beth Jernigan MD (09/06/2020 11:58 AM) [id number] DICTATED AND SIGNED BY: MARY BETH JERNIGAN MD DATE: 09/06/20 1156 CC: SANDRA REYNOLDS DO; OPAL SLOAN MD ~MTH0 0 EXAM: Chest, single view. HISTORY: Syncope. COMPARISON: 11/21/2017 FINDINGS: A frontal view of the chest is obtained. There is no infiltrate, pleural effusion or pneumothorax. The heart is normal in size. There are clips overlying the right mid thorax. There is a stable cardiac silhouette. IMPRESSION: No acute pulmonary finding. Electronically signed by: Mary Beth Jernigan MD (09/06/2020 11:59 AM) [id number] DICTATED AND SIGNED BY: MARY BETH JERNIGAN MD DATE: 09/06/20 1158 CC: SANDRA REYNOLDS DO; OPAL SLOAN MD ~MTH0 0 Heart Score: C/O Chest Pain: No Risk Factors: Risk Factors: DM, Current or recent (<one month) smoker, HTN, HLP, family history of CAD, obesity. Risk Scores: Score 0 - 3: 2.5% MACE over next 6 weeks - Discharge Home Score 4 - 6: 20.3% MACE over next 6 weeks - Admit for Clinical Observation Score 7 - 10: 72.7% MACE over next 6 weeks - Early Invasive Strategies Course & Med Decision Making: Course & Med Decision Making Pertinent Labs and Imaging studies reviewed. (See chart for details) The patient's head CT is negative for acute findings. There are chronic findings. See official read for more details. Her initial pressure was 200s over the 110s. She has not taken her blood pressure medicine for couple days. We gave her 10 mg of metoprolol IV. Her blood pressure is much improved to 164/86. I have advised that she continue to take her blood pressure medications as prescribed. Her chest x-ray is unremarkable. Her initial blood sugars were in the 360s. I have given her 10 units of regular insulin sliding. Repeat blood sugar is 170s. The patient does not meet admission criteria at this time. She is stable for discharge. [] Dragon Disclaimer: Drag[place]ie Disclaimer: This electronic medical record was generated, in whole or in part, using a voice recognition dictation system. Departure Departure: Impression: Primary Impression: Syncope and collapse Additional Impressions: Closed head injury Hyperglycemia due to diabetes mellitus Disposition: 01 HOME / SELF CARE / HOMELESS Condition: IMPROVED Referrals: NON,STAFF (PCP) Patient Instructions: Hyperglycemia, [id number], Syncope, [id number] SANDRA REYNOLDS DO Sep 06, 2020 11:02
[2020-09-06] MEDS ORDERED: IV NORMAL SALINE 1,000ML 1,000 ML IV ONE (11:30)
[2020-09-06] MEDS ORDERED: INSULIN REGULAR 100 UNIT/ML 3ML VIAL. IV ONE (11:30)
[2020-09-06 11:36] LABS: BASO % 0 % (0-3); EOS # 0.2 x10^3/uL (0.0-0.7); EOS % 2 % (0-3); HEMATOCRIT 45.4 % (36.0-47.0); HEMOGLOBIN 15.3 g/dL (12.0-15.5); LYMPH # 2.1 x10^3/uL (1.0-4.8); LYMPH % 24 % (24-48); MEAN CORPUSCULAR HEMOGLOBIN 29 pg (25-35); MEAN CORPUSCULAR HGB CONC 34 g/dL (31-37); MEAN CORPUSCULAR VOLUME 86 fL (79-100); MONO # 0.6 x10^3/uL (0.0-1.1); MONO % 6 % (0-9); NEUT # 5.9 x10^3uL (1.8-7.7); NEUT % 67 % (31-73); PLATELET COUNT 182 x10^3/uL (140-400); RED BLOOD COUNT 5.31 x10^6/uL (3.50-5.40); RED CELL DISTRIBUTION WIDTH 13.8 % (11.5-14.5); WHITE BLOOD COUNT 8.8 x10^3/uL (4.0-11.0)
[2020-09-06] MEDS ORDERED: predniSONE 10 MG TABLET PO ONE (11:45)
[2020-09-06] MEDS ORDERED: KETOROLAC 60 MG/2 ML VIAL. IM ONE (11:45)
--- NOTE | 2020-09-06 12:00 | RAD ---
EXAM: Head CT without contrast. HISTORY: Syncope. Fall. TECHNIQUE: Computed tomographic images of the head were obtained without contrast. *One or more of the following individualized dose reduction techniques were utilized for this examina tion: 1. Automated exposure control. 2. Adjustment of the mA and/or kV according to patient size. 3. Use of iterative reconstruction technique. COMPARISON: 02/17/2017. FINDINGS: There is no acute or subacute extra-axial or intraparenchymal hemorrhage. There is no mass effect or midline shift. There is no hydrocephalus. There are areas of decreased attenuation within the cerebral white matter, nonspecific and likely rel ated to chronic small vessel disease. There is cerebral volume loss. There are small chronic infarcts within the left centrum semiovale and right thalamus. There is a small left inferior frontal scalp and supraorbital soft tissue hematoma. The visualized portions of the orbits, paranasal sinuses and mastoid air cells are unremarkable. No s uspicious calvarial lesion is seen. IMPRESSION: 1. Small inferior left frontal scalp and left supraorbital soft tissue hematoma. 2. Bilateral cerebral white matter changes, likely due to chronic small vessel disease. 3. 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 4. Cerebral volume loss. Electronically signed by: Mary Beth Jernigan MD (09/06/2020 11:58 AM) [id number]
--- NOTE | 2020-09-06 12:01 | RAD ---
EXAM: Chest, single view. HISTORY: Syncope. COMPARISON: 11/21/2017 FINDINGS: A frontal view of the chest is obtained. There is no infiltrate, pleural effusion or pneumo thorax. The heart is normal in size. There are clips overlying the right mid thorax. There is a stabl e cardiac silhouette. IMPRESSION: No acute pulmonary finding. Electronically signed by: Mary Beth Jernigan MD (09/06/2020 11:59 AM) [id number]
[2020-09-06 12:02] LABS: ALBUMIN 3.3 g/dL (3.4-5.0); ALBUMIN/GLOBULIN RATIO 0.9 (1.0-1.7); CALCIUM 9.2 mg/dL (8.5-10.1); CREATININE 1.2 mg/dL (0.6-1.0); GFR 44.8; POTASSIUM 4.1 mmol/L (3.5-5.1); TOTAL BILIRUBIN 0.8 mg/dL (0.2-1.0); TOTAL PROTEIN 6.9 g/dL (6.4-8.2)
[2020-09-06 13:02] VITALS: BP 150/95
--- NOTE | 2020-09-06 13:43 | EKG ---
[address] [address] Test Date: 2020-09-06 Test Time: 11:00:35 Pat Name: PRO ALVAREZ Department: Room: Gender: F Misdraw Hand: OLIVIA : 1955 Requested By: SANDRA REYNOLDS Order Number: [id number] Reading MD: Measurements Intervals [place] Rate: 100 P: -1 MT: 164 QRS: -8 QRSD: 92 T: 36 QT: 350 QTc: 455 Interpretive Statements SINUS RHYTHM LEFTWARD AXIS ST & T ABNORMALITY, CONSIDER HIGH LATERAL ISCHEMIA OR LEFT VENTRICULAR STRAIN ABNORMAL ECG RI6.02 No previous ECG available for comparison
== END 2020-09-06 13:09 | disposition home or self-care (01) ==
LOC: ER 10:31
DX: S00.81XA Abrasion of other part of head, initial encounter (principal); R55 Syncope and collapse; E11.65 Type 2 diabetes mellitus with hyperglycemia; I25.10 Atherosclerotic heart disease of native coronary artery without angina pectoris; E11.9 Type 2 diabetes mellitus without complications; I10 Essential (primary) hypertension; Z87.442 Personal history of urinary calculi; Z90.49 Acquired absence of other specified parts of digestive tract; Z90.710 Acquired absence of both cervix and uterus; Z98.51 Tubal ligation status; Z88.8 Allergy status to other drugs, medicaments and biological substances; W18.39XA Other fall on same level, initial encounter; Y93.89 Activity, other specified; Y92.098 Other place in other non-institutional residence as the place of occurrence of the external cause; Y99.8 Other external cause status
CPT/HCPCS: 36415; 70450; 71045; 80053; 82947; 84484; 85025; 93005; 96361; 96374; 96375; 99285; J1815; J3490; J7030